=== PATIENT | male | born 1960 | race Caucasian/White ===

== ENCOUNTER 2016-08-11 11:49 | Emergency (ER) | payer OTHER ==
[2016-08-11] MEDS ORDERED: OXYCODONE/APAP 5/325 TAB PO ONE (13:07)
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
[2016-08-11 14:24] VITALS: BP 184/100; PULSE 92; RESP 18; TEMP 97.9; O2SAT 94
== END 2016-08-11 14:24 | disposition home or self-care (01) ==
DX: S09.90XA Unspecified injury of head, initial encounter (principal); S16.1XXA Strain of muscle, fascia and tendon at neck level, initial encounter; E11.9 Type 2 diabetes mellitus without complications; I10 Essential (primary) hypertension; F17.200 Nicotine dependence, unspecified, uncomplicated; Z79.84 Long term (current) use of oral hypoglycemic drugs; V49.49XA Driver injured in collision with other motor vehicles in traffic accident, initial encounter; Y92.410 Unspecified street and highway as the place of occurrence of the external cause; Y99.8 Other external cause status; Y93.89 Activity, other specified
CPT/HCPCS: L0172

== ENCOUNTER 2018-10-14 03:44 | Emergency (ER) | payer OTHER | END 2018-10-14 06:19 | disposition home or self-care (01) ==